=== PATIENT | female | born 2005 | race Caucasian/White ===

== ENCOUNTER → 2024-05-26 | Emergency (ER) | payer OTHER ==
[~2024-05-26] MED LIST: Rabies Vaccine Human 2.5 UNITS VIAL ONE
== END ==
LOC: ERS 05:57
DX: Z23 Encounter for immunization (principal)
CPT/HCPCS: 90471; 90675

== ENCOUNTER 2024-06-02 02:38 | Emergency (ER) | payer OTHER ==
[2024-06-02] MEDS ORDERED: Rabies Vaccine Human 2.5 UNITS VIAL ONE (03:53)
== END 2024-06-02 04:11 | disposition home or self-care (01) ==
LOC: ERS 02:38
DX: R21 Rash and other nonspecific skin eruption (principal)
CPT/HCPCS: 90471; 90675